=== PATIENT | female | born 1960 | race Caucasian/White ===

== ENCOUNTER → 2017-01-04 | Outpatient (CLI) | payer BC ==
[~2017-01-04] MED LIST: ASPI325T6 PO; BYSTOLIC20 MG PO; CHLORTHALIDONE25 MG PO; COUMADIN 1010 MG/TAB PO; COUMADIN5 MG PO; COUMADIN7.5 MG PO; EPA FISH OIL1000 MG PO; EPA-CON500 MG PO; FISH OIL CONC1000 MG PO; FLECAINIDE ACE100 MG PO; FLECAINIDE ACE150 MG PO; HYGROTON25 MG PO; LISINOPRIL40 MG PO; LOPRESSOR 550 MG/TAB PO; LOPRESSOR50 MG PO; TAMBOCOR150 MG PO; TYLENOL 325MG325 MG PO; WARFARIN SOD5 MG PO; ZESTRIL40 MG PO; ZOLPIDEM10 MG PO
== END ==
LOC: COL.RAD 07:52
DX: I71.2 Thoracic aortic aneurysm, without rupture (principal); R91.1 Solitary pulmonary nodule; R05 Cough; R09.89 Other specified symptoms and signs involving the circulatory and respiratory systems; Z72.0 Tobacco use
CPT/HCPCS: Q9967

== ENCOUNTER → 2018-01-27 | Outpatient (CLI) | payer BC | LOC: COL.RAD 01-26 11:00 | DX: I71.2 Thoracic aortic aneurysm, without rupture (principal); R91.1 Solitary pulmonary nodule | CPT/HCPCS: Q9967 ==

== ENCOUNTER 2018-07-17 08:26 | Emergency (ER) | payer BC ==
[~2018-07-17] VITALS: Ht 157.5 cm; Wt 85.5 kg
[2018-07-17 09:08] LABS: BASO % 0.4 % (0.0-2.0); EOS # 0.2 (0.0-0.7); EOS % 2.2 % (0-4.0); GRAN # 6.1 (1.4-6.5); GRAN % 68.4 % (42.2-75.2); HEMATOCRIT 49.2 % (37.0-47.0); HEMOGLOBIN 16.6 g/dl (12.5-16.0); LYMPH % 22.2 % (20.0-51.0); MEAN CELL VOLUME 91 fl (80.0-100.0); MEAN CORPUSCULAR HEMOGLOBIN 31 pg (27.0-31.0); MEAN CORPUSCULAR HGB CONC 34 g/dl (33.0-37.0); MEAN PLATELET VOLUME 9.4 fl (7.4-10.4); MONO # 0.6 (0.1-0.6); MONO % 6.2 % (1.7-9.3); PLATELET COUNT 248 K/mm3 (130-400); RED BLOOD COUNT 5.43 M/mm3 (4.10-5.30); REDCELL DISTRIBUTION WIDTH-CV 12.3 % (11.5-14.5)
[2018-07-17 09:09] LABS: INR 1.3 (0.8-3.0); PROTHROMBIN TIME 14.7 SECONDS (9.7-12.8)
[2018-07-17 09:13] LABS: ALANINE AMINOTRANSFERASE 51 U/L (9-52); ALBUMIN 4.2 gm/dL (3.5-5.0); ALKALINE PHOSPHATASE 109 U/L (50-136); ANION GAP 14 mmol/L (7-16); AST,SGOT 71 U/L (15-37); BILIRUBIN,TOTAL 0.7 mg/dL (0.0-1.0); BLOOD UREA NITROGEN 15 mg/dL (7-17); CALCIUM 9.5 mg/dL (8.4-10.2); CARBON DIOXIDE 26 mmol/L (22-30); CHLORIDE 103 mmol/L (98-107); CREATININE, serum 0.79 (0.52-1.25); GLUCOSE 145 mg/dL (74-106); LIPASE 105 U/L (23-300); POTASSIUM 3.5 mmol/L (3.4-5.0); SODIUM 143 mmol/L (137-145); TOTAL PROTEIN 7.6 gm/dL (6.4-8.2)
[2018-07-17 09:27] LABS: TROPONIN-I < 0.012 ng/mL (0.000-0.035)
[2018-07-17] MEDS ORDERED: HYGROTON 2525 MG/TAB PO (10:42)
[2018-07-17] MEDS ORDERED: TAMBOCOR150 MG PO (10:42)
[2018-07-17] MEDS ORDERED: ELIQUIS 5MG PO (10:42)
[2018-07-17] MEDS ORDERED: LOPID 600M600 MG/TAB PO (10:43)
[2018-07-17] MEDS ORDERED: ASPIRIN 81M81 MG/TA2 PO (10:44)
[2018-07-17 11:20] VITALS: BP 104/76; PULSE 53; TEMP 96.7
[2018-07-17] MEDS ORDERED: REGLAN 10MG10 MG/TAB PO (12:11)
[2018-07-18] MEDS ORDERED: OMNICEF 300MG300 MG PO (05:08)
[2018-07-18] MEDS ORDERED: LOPID 600M600 MG/TAB PO (07:41)
[2018-07-18] MEDS ORDERED: BENADRYL25 M2 PO (07:43)
[2018-07-18] MEDS ORDERED: TYLENOL 500MG500 MG PO (07:43)
== END 2018-07-17 11:20 | disposition home or self-care (01) ==
LOC: COL.ER 08:26
PROVIDERS: Emergency Medicine
DX: R51 Headache (principal); R10.9 Unspecified abdominal pain; I48.91 Unspecified atrial fibrillation; F17.210 Nicotine dependence, cigarettes, uncomplicated; Z79.82 Long term (current) use of aspirin; Z98.890 Other specified postprocedural states
CPT/HCPCS: J1200; J2765; Q9967

== ENCOUNTER 2018-07-17 22:59 | Observation (INO) | payer BC ==
[~2018-07-17] VITALS: Ht 157.5 cm; Wt 84.5 kg
[~2018-07-17 22:59] MED LIST changes: +ASPIRIN 81M81 MG/TA2 PO; +ELIQUIS 5MG PO; +HYGROTON 2525 MG/TAB PO; +LOPID 600M600 MG/TAB PO; +REGLAN 10MG10 MG/TAB PO
[2018-07-18] VITALS (10 sets, daily range): BP systolic 100–147; BP diastolic 50–86; PULSE 57–91; TEMP 97.8–99.2
[2018-07-18 00:03] LABS: BASO % 0.3 % (0.0-2.0); EOS # 0.1 (0.0-0.7); EOS % 0.9 % (0-4.0); GRAN # 10.6 (1.4-6.5); GRAN % 79.2 % (42.2-75.2); HEMATOCRIT 49.1 % (37.0-47.0); HEMOGLOBIN 16.4 g/dl (12.5-16.0); LYMPH # 1.8 (1.2-3.4); LYMPH % 13.1 % (20.0-51.0); MEAN CELL VOLUME 90 fl (80.0-100.0); MEAN CORPUSCULAR HEMOGLOBIN 30 pg (27.0-31.0); MEAN CORPUSCULAR HGB CONC 33 g/dl (33.0-37.0); MEAN PLATELET VOLUME 9.5 fl (7.4-10.4); MONO # 0.8 (0.1-0.6); MONO % 6.1 % (1.7-9.3); PLATELET COUNT 266 K/mm3 (130-400); RED BLOOD COUNT 5.45 M/mm3 (4.10-5.30); REDCELL DISTRIBUTION WIDTH-CV 12.1 % (11.5-14.5)
[2018-07-18 00:07] LABS: INR 1.2 (0.8-3.0); PROTHROMBIN TIME 13.1 SECONDS (9.7-12.8)
[2018-07-18 00:09] LABS: PARTIAL THROMBOPLASTIN TIME 45.5 SECONDS (26.0-37.0)
[2018-07-18 00:13] LABS: ALANINE AMINOTRANSFERASE 79 U/L (9-52); ALBUMIN 4.3 gm/dL (3.5-5.0); ALKALINE PHOSPHATASE 134 U/L (50-136); ANION GAP 9 mmol/L (7-16); AST,SGOT 110 U/L (15-37); BILIRUBIN,TOTAL 0.5 mg/dL (0.0-1.0); BLOOD UREA NITROGEN 18 mg/dL (7-17); C-REACTIVE PROTEIN 3.3 mg/dL (0.0-0.9); CALCIUM 10.4 mg/dL (8.4-10.2); CARBON DIOXIDE 27 mmol/L (22-30); CHLORIDE 104 mmol/L (98-107); CREATININE, serum 0.98 (0.52-1.25); GLUCOSE 122 mg/dL (74-106); LIPASE 96 U/L (23-300); POTASSIUM 3.7 mmol/L (3.4-5.0); SODIUM 139 mmol/L (137-145); TOTAL PROTEIN 7.9 gm/dL (6.4-8.2)
[2018-07-18 00:22] LABS: TROPONIN-I < 0.012 ng/mL (0.000-0.035)
[2018-07-18 04:06] LABS: COLLECTION METHOD CLEAN CATCH
[2018-07-18 04:15] LABS: PH 6 (5-8); SQUAMOUS EPITHELIAL 0-2 /hpf; URINE APPEARANCE Clear; URINE BACTERIA None Seen /hpf; URINE BILIRUBIN Negative (NEGATIVE); URINE BLOOD 1+ (NEGATIVE); URINE COLOR Yellow; URINE GLUCOSE Negative (NEGATIVE); URINE KETONE Trace (NEGATIVE); URINE LEUKOCYTE ESTERASE Negative (NEGATIVE); URINE NITRATE Negative (NEGATIVE); URINE PROTEIN(semi-quant) Negative (NEGATIVE); URINE UROBILINOGEN Negative (NEGATIVE)
[2018-07-18] MEDS ORDERED: OMNICEF 300MG300 MG PO (05:08)
--- NOTE | 2018-07-18 05:25 | NUR ---
Patient arrived to medical floor via wheelchair. Assessment complete. Lungs clear. Heart sounds normal. Bowels active x4. ABD soft. Reports 5/10 epigastric and headache pain. Pulses strong throughout. No edema noted. IV to right AC without complications. Orientated to medical floor and hospital. Answered all questions at this time. Denies other needs. Call light in reach.
--- NOTE | 2018-07-18 07:09 | NUR ---
Report given to BHARTI Vences
[2018-07-18] MEDS ORDERED: LOPID 600M600 MG/TAB PO (07:41)
[2018-07-18] MEDS ORDERED: TYLENOL 500MG500 MG PO (07:43)
[2018-07-18] MEDS ORDERED: BENADRYL25 M2 PO (07:43)
[2018-07-18 08:41] LABS: BASO % 0.4 % (0.0-2.0); EOS % 0.4 % (0-4.0); GRAN # 8.5 (1.4-6.5); GRAN % 77.7 % (42.2-75.2); HEMATOCRIT 51.1 % (37.0-47.0); LYMPH # 1.6 (1.2-3.4); LYMPH % 14.4 % (20.0-51.0); MEAN CELL VOLUME 90 fl (80.0-100.0); MEAN CORPUSCULAR HEMOGLOBIN 30 pg (27.0-31.0); MEAN CORPUSCULAR HGB CONC 33 g/dl (33.0-37.0); MEAN PLATELET VOLUME 9.3 fl (7.4-10.4); MONO # 0.7 (0.1-0.6); MONO % 6.7 % (1.7-9.3); PLATELET COUNT 274 K/mm3 (130-400); RED BLOOD COUNT 5.66 M/mm3 (4.10-5.30); REDCELL DISTRIBUTION WIDTH-CV 12.3 % (11.5-14.5)
[2018-07-18 09:06] LABS: ALBUMIN 4.2 gm/dL (3.5-5.0); BILIRUBIN,TOTAL 0.4 mg/dL (0.0-1.0); CALCIUM 9.9 mg/dL (8.4-10.2); CREATININE, serum 0.75 (0.52-1.25); POTASSIUM 3.8 mmol/L (3.4-5.0)
--- NOTE | 2018-07-18 09:39 | NUR ---
JESUS student attended clinical rounding and met with the patient and her mother, Lea, to discuss discharge planning. The patient lives in [place] with her significant other Pam. The patient reports independence with ADLs and has no DME. The patients PCP is Dr. Cass Fung and she gets her medications from [facility] in [place]. The patient reports no difficulties obtaining her medications. The patient does not have DPOA-HC in EMR but was interested in completing one. JESUS provided DPOA-HC form. The patient plans to return home with her significant other and family support upon discharge. No additional needs at this time.
--- NOTE | 2018-07-18 09:40 | NUR ---
CALL PLACED TO DR. FISHER REGARDING ORDERED LUMBAR PUNCTURE.STATES TO HOLD ELIQUIS AND SCHEDULE LUMBAR PUNCTURE ACCORDING.DR. SHEARER UPDATED AND ELIQUIS PUT ON HOLD.WILL CONTINUE TO MONITOR.
--- NOTE | 2018-07-18 11:07 | NUR ---
PATIENT CONTINUES WITH C/O OF EPIGASTRIC PAIN WITH INTERMITTENT RADIATION TO RIGHT UPPER QUADRANT AND MID BACK. DENIES C/O OF NAUSEA. NO VOMITTING. CONTINUES TO BE NPO D/T DIAGNOSTIC TESTING. SEE EMAR FOR MEDICATIONS ADMINISTERED FOR PAIN. VERBAL COMMUNICATION THAT AM MEDICATIONS COULD BE ADMINISTERED. ELIQUIS AND BETA VIMAL ON HOLD. PATIENT AGREES WITH PLAN OF CARE AND DENIES CONCERNS AFTER REVIEW.
--- NOTE | 2018-07-18 15:46 | NUR ---
PATIENT SITTING UP IN BED PLAYING ON PHONE. FINISHED ORDERING LUNCH AT THIS TIME. DENIES C/O OF NAUSEA. DISCUSSED STARTING SLOW WITH ORAL INTAKE TO DETERMINE INCREASED PAIN AND NAUSEA. REPORTS MILD EPIGASTRIC CRAMPING AT THIS TIME. NS INFUSING AT 125ML/HR THROUGH INT IN RIGHT AC. DENIES FURTHER NEEDS AT THIS TIME.
--- NOTE | 2018-07-18 18:57 | NUR ---
REPORT GIVEN TO BHARTI ELLINGTON.
--- NOTE | 2018-07-18 19:06 | NUR ---
Report received from BHARTI Vences. Resting in bed. Denies needs. Call light in reach.
--- NOTE | 2018-07-18 20:25 | NUR ---
Resting in bed. Assessment complete. Lungs clear. Heart sounds normal. Bowels active x4. Pulses strong throughout. No edema noted. Reports 4/10 pain at this time in ABD. Denies need for intervention at this time. Denies other needs. Call light in reach.
--- NOTE | 2018-07-18 21:15 | NUR ---
Patient reports 5/10 ABD pain. Requested PRN diluadid. Provided to patient. Will continue to monitor.
[2018-07-19 00:06] VITALS: BP 124/75; PULSE 63; TEMP 98.8
--- NOTE | 2018-07-19 00:26 | NUR ---
Resting in bed. Denies needs. Reports 06/21 thats "manageable." Call light in reach.
--- NOTE | 2018-07-19 01:07 | NUR ---
Report 6/10 ABD pain. Provided with PRN diluadid at this time. Will monitor.
[2018-07-19 03:00] VITALS: BP 118/82; PULSE 67; TEMP 98.3
--- NOTE | 2018-07-19 04:10 | NUR ---
Resting in bed, asleep. Call light in reach.
--- NOTE | 2018-07-19 04:23 | NUR ---
Reports 8/10 ABD pain. Provided with PRN dilaudid at this time.
--- NOTE | 2018-07-19 06:10 | NUR ---
Patient required pain management throughout night for epigastric pain. Otherwise uneventful. Up in room watching news and giving self sponge bath this AM. Denies needs. Call light in reach.
--- NOTE | 2018-07-19 07:02 | NUR ---
Report given to BHARTI Vences
--- NOTE | 2018-07-19 07:05 | NUR ---
received report from BHARTI Garcia.patient ready for EGD scheduled this am.no other needs voiced at this time.call light in reach
--- NOTE | 2018-07-19 08:05 | NUR ---
PT RETURNED TO ROOM FROM EGD.AWAKE,REPORTS BEING TIRED.VSS.DENIES ANY NEEDS AT THIS TIME.CALL LIGHT IN REACH
[2018-07-19 08:11] LABS: BASO # 0.1 (0.0-0.2); BASO % 0.6 % (0.0-2.0); EOS # 0.3 (0.0-0.7); EOS % 2.7 % (0-4.0); GRAN # 7.2 (1.4-6.5); GRAN % 70.8 % (42.2-75.2); HEMATOCRIT 46.4 % (37.0-47.0); HEMOGLOBIN 15.3 g/dl (12.5-16.0); LYMPH # 1.9 (1.2-3.4); LYMPH % 18.5 % (20.0-51.0); MEAN CELL VOLUME 92 fl (80.0-100.0); MEAN CORPUSCULAR HEMOGLOBIN 30 pg (27.0-31.0); MEAN CORPUSCULAR HGB CONC 33 g/dl (33.0-37.0); MONO # 0.7 (0.1-0.6); MONO % 7.1 % (1.7-9.3); PLATELET COUNT 262 K/mm3 (130-400); RED BLOOD COUNT 5.03 M/mm3 (4.10-5.30); REDCELL DISTRIBUTION WIDTH-CV 12.5 % (11.5-14.5)
[2018-07-19 08:12] LABS: POTASSIUM 3.8 mmol/L (3.4-5.0)
[2018-07-19 08:23] LABS: ALBUMIN 3.9 gm/dL (3.5-5.0); BILIRUBIN,TOTAL 0.7 mg/dL (0.0-1.0); CREATININE, serum 0.71 (0.52-1.25); TOTAL PROTEIN 7.3 gm/dL (6.4-8.2)
[2018-07-19 08:45] VITALS: BP 109/76; PULSE 56
[2018-07-19 08:49] VITALS: BP 121/73; PULSE 60; TEMP 97.6
[2018-07-19 08:53] VITALS: BP 132/79; PULSE 61
--- NOTE | 2018-07-19 09:00 | NUR ---
ASSESSMENT COMPLETE.PATIENT AWAKE,A/OX3.COMPLAIN OF DISCOMFORT TO EPIGASTRIC REGION.TENDER TO PALPATION.ALL MEDS GIVEN.SUPPOSITORY GIVEN FOR CONSTIPATION.POST OP VITALS STABLE.EGD COMPLETED.PROTONIX ORDERED.POTTASIUM REPLACED.NO OTHER NEEDS VOICED AT THIS TIME.WILL CONTINUE TO MONITOR.CALL LIGHT IN REACH
[2018-07-19] MEDS ORDERED: PROTONIX 40MG T40 MG PO (09:34)
[2018-07-19] MEDS ORDERED: DULCOLAX S10 MG/SUPP RC (09:34)
[2018-07-19] MEDS ORDERED: MIRALAX510G PO (09:34)
[2018-07-19] MEDS ORDERED: FLEXERIL5 MG PO (09:40)
[2018-07-19] MEDS ORDERED: BENTYL 20MG20 MG/TAB PO (09:42)
[2018-07-19 11:41] VITALS: BP 140/86; PULSE 62; TEMP 98.5
--- NOTE | 2018-07-19 12:12 | NUR ---
First visit from the weathercaster. no needs right now.
--- NOTE | 2018-07-19 14:35 | NUR ---
PT RECEIVED BENTYL AND FLEXERIL FOR STOMACH CRAMPING.
--- NOTE | 2018-07-19 14:36 | NUR ---
ALL DISCHARGE INSTRUCTIONS REVEIWED.TELEMETRY AND IV DISCONTINUED.ALL LUMBAR PUNCTURE INSRUCTIONS REVIEWED.PRE-PROCEDURE INSTRUCTIONS GIVEN TO PATIENT.ALL QUESTIONS ANSWERED.NO OTHER NEEDS VOICED AT THIS TIME.VC STAFF ESCORTED PATIENT OUT VIA WHEELCHAIR.
== END 2018-07-19 14:39 | disposition home or self-care (01) ==
LOC: COL.ER 22:59 → MEDICAL 07-18 04:00
PROVIDERS: Emergency Medicine; Nurse Practitioner Family; Physician Assistant; ADMIT Hospitalist
DX: K29.30 Chronic superficial gastritis without bleeding (principal); K29.80 Duodenitis without bleeding; K44.9 Diaphragmatic hernia without obstruction or gangrene; R74.0 Nonspecific elevation of levels of transaminase and lactic acid dehydrogenase [LDH]; R51 Headache; I71.2 Thoracic aortic aneurysm, without rupture; R91.1 Solitary pulmonary nodule; I48.91 Unspecified atrial fibrillation; I10 Essential (primary) hypertension; N39.0 Urinary tract infection, site not specified; Z79.01 Long term (current) use of anticoagulants; Z79.82 Long term (current) use of aspirin; Z82.49 Family history of ischemic heart disease and other diseases of the circulatory system; F17.210 Nicotine dependence, cigarettes, uncomplicated; Z88.8 Allergy status to other drugs, medicaments and biological substances
CPT/HCPCS: A4216; A9500; A9585; C9113; G0378; J0360; J0696; J1170; J1200; J2550; J2704; J2785; J7030; J7120; Q9967

== ENCOUNTER 2018-07-23 00:26 | Emergency (ER) | payer BC ==
[~2018-07-23] VITALS: Ht 157.5 cm; Wt 84.1 kg
[~2018-07-23 00:26] MED LIST changes: +BENADRYL25 M2 PO; +BENTYL 20MG20 MG/TAB PO; +DULCOLAX S10 MG/SUPP RC; +FLEXERIL5 MG PO; +MIRALAX510G PO; +OMNICEF 300MG300 MG PO; +PROTONIX 40MG T40 MG PO; +TYLENOL 500MG500 MG PO
[2018-07-23 00:32] VITALS: TEMP 97.4
[2018-07-23 00:51] LABS: BASO # 0.1 (0.0-0.2); BASO % 0.6 % (0.0-2.0); EOS # 0.3 (0.0-0.7); EOS % 2.9 % (0-4.0); GRAN # 6.3 (1.4-6.5); GRAN % 56.9 % (42.2-75.2); HEMATOCRIT 52.5 % (37.0-47.0); HEMOGLOBIN 17.6 g/dl (12.5-16.0); LYMPH # 3.5 (1.2-3.4); LYMPH % 31.1 % (20.0-51.0); MEAN CELL VOLUME 90 fl (80.0-100.0); MEAN CORPUSCULAR HEMOGLOBIN 30 pg (27.0-31.0); MEAN CORPUSCULAR HGB CONC 34 g/dl (33.0-37.0); MEAN PLATELET VOLUME 9.3 fl (7.4-10.4); MONO # 0.8 (0.1-0.6); MONO % 7.6 % (1.7-9.3); PLATELET COUNT 319 K/mm3 (130-400); RED BLOOD COUNT 5.81 M/mm3 (4.10-5.30); REDCELL DISTRIBUTION WIDTH-CV 12.2 % (11.5-14.5)
[2018-07-23 01:01] LABS: ALANINE AMINOTRANSFERASE 64 U/L (9-52); ALBUMIN 4.5 gm/dL (3.5-5.0); ALKALINE PHOSPHATASE 179 U/L (50-136); ANION GAP 12 mmol/L (7-16); AST,SGOT 92 U/L (15-37); BILIRUBIN,TOTAL 0.4 mg/dL (0.0-1.0); BLOOD UREA NITROGEN 18 mg/dL (7-17); CALCIUM 9.9 mg/dL (8.4-10.2); CARBON DIOXIDE 29 mmol/L (22-30); CHLORIDE 100 mmol/L (98-107); CREATININE, serum 0.85 (0.52-1.25); GLUCOSE 117 mg/dL (74-106); LIPASE 195 U/L (23-300); POTASSIUM 3.8 mmol/L (3.4-5.0); SODIUM 141 mmol/L (137-145); TOTAL PROTEIN 8.4 gm/dL (6.4-8.2)
[2018-07-23 01:16] LABS: TROPONIN-I < 0.012 ng/mL (0.000-0.035)
[2018-07-23] MEDS ORDERED: DOXYCYCLINE 10100 MG PO (03:15)
[2018-07-23 05:47] VITALS: BP 96/68; PULSE 65
== END 2018-07-23 05:51 | disposition home or self-care (01) ==
LOC: COL.ER 00:26
PROVIDERS: Emergency Medicine
DX: I48.91 Unspecified atrial fibrillation (principal); F17.210 Nicotine dependence, cigarettes, uncomplicated
CPT/HCPCS: J1200; J2270; J2765; J7030; Q9967

== ENCOUNTER 2018-07-23 11:00 | Emergency (ER) | payer BC ==
[~2018-07-23] VITALS: Ht 157.5 cm; Wt 84.1 kg
[~2018-07-23 11:00] MED LIST changes: +DOXYCYCLINE 10100 MG PO
[2018-07-23 11:08] VITALS: TEMP 97.3
[2018-07-23 11:25] LABS: BASO # 0.1 (0.0-0.2); BASO % 0.6 % (0.0-2.0); EOS # 0.2 (0.0-0.7); GRAN % 64.1 % (42.2-75.2); HEMATOCRIT 49.5 % (37.0-47.0); HEMOGLOBIN 16.3 g/dl (12.5-16.0); LYMPH % 25.1 % (20.0-51.0); MEAN CELL VOLUME 92 fl (80.0-100.0); MEAN CORPUSCULAR HEMOGLOBIN 30 pg (27.0-31.0); MEAN CORPUSCULAR HGB CONC 33 g/dl (33.0-37.0); MEAN PLATELET VOLUME 9.4 fl (7.4-10.4); MONO # 0.5 (0.1-0.6); MONO % 6.3 % (1.7-9.3); PLATELET COUNT 334 K/mm3 (130-400); RED BLOOD COUNT 5.36 M/mm3 (4.10-5.30); REDCELL DISTRIBUTION WIDTH-CV 12.3 % (11.5-14.5)
[2018-07-23 11:38] LABS: ALBUMIN 4.2 gm/dL (3.5-5.0); BILIRUBIN,TOTAL 0.4 mg/dL (0.0-1.0); CALCIUM 9.3 mg/dL (8.4-10.2); CREATININE, serum 0.8 (0.52-1.25); POTASSIUM 3.4 mmol/L (3.4-5.0)
[2018-07-23 11:45] LABS: ERYTHROCYTE SEDIMENTATION RATE 16 mm/hr (0-30)
[2018-07-23 14:35] VITALS: BP 118/77; PULSE 56
== END 2018-07-23 14:44 | disposition short-term general hospital (02) ==
LOC: COL.ER 11:00
PROVIDERS: Family Medicine
DX: I77.4 Celiac artery compression syndrome (principal); I48.91 Unspecified atrial fibrillation; Z79.01 Long term (current) use of anticoagulants; F17.210 Nicotine dependence, cigarettes, uncomplicated
CPT/HCPCS: J7030

== ENCOUNTER 2018-08-29 10:40 | Inpatient (IN) | payer BC ==
[~2018-08-29] VITALS: Ht 157.5 cm; Wt 84.5 kg
[2018-08-29] VITALS (7 sets, daily range): BP systolic 87–111; BP diastolic 67–85; PULSE 107–116; TEMP 97.8–98.3
--- NOTE | 2018-08-29 11:10 | NUR ---
Pt admitted to ICU bed 3 from [facility]. Pt placed on ekg monitor upon arrival. Pt denies any pain, only reporting some palpitations rarely. Call light within reach. Dr. Villanueva notified of Pt admission.
[2018-08-29] MEDS ORDERED: ASPIRIN 81M81 MG/TA2 PO (12:38)
[2018-08-29] MEDS ORDERED: ASPIRIN E.C. 8181 MG PO (12:39)
[2018-08-29] MEDS ORDERED: TYLENOL 500MG500 MG PO (12:39)
[2018-08-29] MEDS ORDERED: MASON NATURAL1200 MG PO (12:41)
[2018-08-29] MEDS ORDERED: ELIQUIS 5MG PO (12:44)
[2018-08-29] MEDS ORDERED: TAMBOCOR150 MG PO ×2 (12:45→12:47)
[2018-08-29] MEDS ORDERED: MAG-OX 400400 MG/TAB PO (12:50)
[2018-08-29] MEDS ORDERED: VERAPAMIL 440 MG/TAB PO (12:51)
[2018-08-29 15:32] LABS: BASO # 0.1 (0.0-0.2); BASO % 0.5 % (0.0-2.0); EOS # 0.1 (0.0-0.7); EOS % 0.5 % (0-4.0); GRAN # 7.4 (1.4-6.5); GRAN % 71.9 % (42.2-75.2); HEMATOCRIT 46.6 % (37.0-47.0); HEMOGLOBIN 15.4 g/dl (12.5-16.0); LYMPH # 2.2 (1.2-3.4); LYMPH % 21.4 % (20.0-51.0); MEAN CELL VOLUME 91 fl (80.0-100.0); MEAN CORPUSCULAR HEMOGLOBIN 30 pg (27.0-31.0); MEAN CORPUSCULAR HGB CONC 33 g/dl (33.0-37.0); MEAN PLATELET VOLUME 9.2 fl (7.4-10.4); MONO # 0.6 (0.1-0.6); MONO % 5.3 % (1.7-9.3); PLATELET COUNT 320 K/mm3 (130-400); RED BLOOD COUNT 5.15 M/mm3 (4.10-5.30); REDCELL DISTRIBUTION WIDTH-CV 12.2 % (11.5-14.5)
[2018-08-29 15:34] LABS: INR 1.2 (0.8-3.0)
[2018-08-29 15:41] LABS: ALBUMIN 4.1 gm/dL (3.5-5.0); BILIRUBIN,TOTAL 0.7 mg/dL (0.0-1.0); CALCIUM 9.1 mg/dL (8.4-10.2); CREATININE, serum 0.73 (0.52-1.25); MAGNESIUM 2.1 mg/dL (1.6-2.3); POTASSIUM 4.3 mmol/L (3.4-5.0); TOTAL PROTEIN 7.4 gm/dL (6.4-8.2)
[2018-08-29 15:55] LABS: TROPONIN-I 0.05 ng/mL (0.000-0.035)
--- NOTE | 2018-08-29 16:35 | NUR ---
Admission assessment complete at this time. Plan of care reviewed at bedside with patient. Additional time taken to address any other needs or concerns. Vitals stable at this time. Bed in low position, call light within reach. Denies pain or any other discomfort. Will continue to monitor.
--- NOTE | 2018-08-29 19:09 | NUR ---
Bedside report given to BHARTI Up.
--- NOTE | 2018-08-29 19:15 | NUR ---
Bedside report received from Vignesh HAY. Pt alert and active in report while resting in high fowlers in bed. Pt currently has eye glasses on.
[2018-08-30] VITALS (8 sets, daily range): BP systolic 75–128; BP diastolic 51–93; PULSE 65–121; TEMP 97.9–98.8
[2018-08-30 05:39] LABS: BASO % 0.4 % (0.0-2.0); EOS # 0.2 (0.0-0.7); EOS % 1.8 % (0-4.0); GRAN # 6.3 (1.4-6.5); GRAN % 67.7 % (42.2-75.2); HEMATOCRIT 44.1 % (37.0-47.0); HEMOGLOBIN 14.4 g/dl (12.5-16.0); LYMPH # 2.2 (1.2-3.4); LYMPH % 23.7 % (20.0-51.0); MEAN CELL VOLUME 93 fl (80.0-100.0); MEAN CORPUSCULAR HEMOGLOBIN 30 pg (27.0-31.0); MEAN CORPUSCULAR HGB CONC 33 g/dl (33.0-37.0); MEAN PLATELET VOLUME 9.8 fl (7.4-10.4); MONO # 0.6 (0.1-0.6); PLATELET COUNT 308 K/mm3 (130-400); RED BLOOD COUNT 4.77 M/mm3 (4.10-5.30); REDCELL DISTRIBUTION WIDTH-CV 12.5 % (11.5-14.5)
[2018-08-30 05:45] LABS: CALCIUM 8.7 mg/dL (8.4-10.2); CREATININE, serum 0.83 (0.52-1.25); MAGNESIUM 2.1 mg/dL (1.6-2.3); POTASSIUM 4.2 mmol/L (3.4-5.0)
[2018-08-30 05:56] LABS: TROPONIN-I 0.019 ng/mL (0.000-0.035)
--- NOTE | 2018-08-30 07:25 | NUR ---
Bedside report provided to Bella HAY. Pt alert during report. Questions encouraged and answered.
--- NOTE | 2018-08-30 07:31 | NUR ---
Report received from Annel HAY and care resumed.
--- NOTE | 2018-08-30 09:30 | NUR ---
Dr Mejia in to see pt at this time.
--- NOTE | 2018-08-30 11:50 | NUR ---
Dr Al in to see pt at this time.
--- NOTE | 2018-08-30 13:09 | NUR ---
Report called to Maddie HAY on medical floor. Pt to transfer to 356 on tele.
--- NOTE | 2018-08-30 13:21 | NUR ---
Pt taken to room 356 per wheelchair with chart and belongings.
--- NOTE | 2018-08-30 13:30 | NUR ---
Pt arrives to medical unit rm 356 from ICU, awake and alert, denies pain, reports slight tenderness to left AC IV site. No redness at site at this time. Saline lock IV to right AC without s/s of complications. POC reviewed with pt, shower requested at this time. Call light in reach.
--- NOTE | 2018-08-30 14:00 | NUR ---
When wrapping IV sites for shower, pt reports increased pain to left AC IV, redness noted superior to insertion site, pain reported with flushing. IV discontinued with tip intact. Right AC IV with scant amount of leaking with flush, no other s/s of complications.
--- NOTE | 2018-08-30 14:39 | NUR ---
JESUS met with the patient to discuss a discharge plan. The pt lives in [place] with her partner Chris. The pt does not use DME and reports independence. The pt's PCP is Dr. Fung. The pt receives her medications from [facility] in and reports no difficulties obtaining them. The pt does not have advanced directives in the EMR. The pt was interested in obtaining a DPOA-HC. JESUS provided the form to the pt. The pt completed the DPOA-HC designating Chris Brantley and Lea Ba . JESUS and the pt's nurse witnessed. The original was given to the patient and a copy was placed in the chart. There are no additional needs at this time.
--- NOTE | 2018-08-30 16:00 | NUR ---
Pt reports swelling to left inner arm where IV site discontinued. This nurse notes swelling to medial, anterior arm. Warm pack placed to site.
--- NOTE | 2018-08-30 16:45 | NUR ---
BP low 75/51 in left forearm. BP reassessed with bigger cuff size on right upper arm, now 96/56 which is consistent with previous BP's for this stay. Pt denies dizziness, shortness of breath. Left AC site around former IV with less swelling and pt reports slight relief of pain following warm pack.
--- NOTE | 2018-08-30 20:30 | NUR ---
Initial shift assessment done- Tele on- NSR, no requests,, L/AC had IV earlier todqy- was dc,d due to pain- site remains slightly red/some edema but pt states it is better
[2018-08-31 04:30] VITALS: BP 109/61; PULSE 65; TEMP 98.2
--- NOTE | 2018-08-31 05:58 | NUR ---
No requests, quiet night- contiunes in NSR per Tele
[2018-08-31 07:28] LABS: BASO % 0.4 % (0.0-2.0); EOS # 0.2 (0.0-0.7); EOS % 2.3 % (0-4.0); GRAN # 4.8 (1.4-6.5); GRAN % 60.8 % (42.2-75.2); HEMATOCRIT 42.3 % (37.0-47.0); HEMOGLOBIN 13.8 g/dl (12.5-16.0); LYMPH # 2.4 (1.2-3.4); LYMPH % 29.9 % (20.0-51.0); MEAN CELL VOLUME 93 fl (80.0-100.0); MEAN CORPUSCULAR HEMOGLOBIN 30 pg (27.0-31.0); MEAN CORPUSCULAR HGB CONC 33 g/dl (33.0-37.0); MEAN PLATELET VOLUME 9.6 fl (7.4-10.4); MONO # 0.5 (0.1-0.6); MONO % 6.1 % (1.7-9.3); PLATELET COUNT 271 K/mm3 (130-400); RED BLOOD COUNT 4.57 M/mm3 (4.10-5.30); REDCELL DISTRIBUTION WIDTH-CV 12.5 % (11.5-14.5)
[2018-08-31 07:38] VITALS: BP 101/58; PULSE 66; TEMP 97.7
[2018-08-31 07:43] LABS: CALCIUM 8.9 mg/dL (8.4-10.2); CREATININE, serum 0.71 (0.52-1.25)
--- NOTE | 2018-08-31 08:58 | NUR ---
Pt lying in bed alert and oriented. Denies any pain or shortness of breath. Completed morning assessment. Pt LAC has been tender and warm. Nurses have been applying hot compresses. Breathing even and unlabored, breath sounds clear. Denies any palpitations. Blood pressures have been low, held bp medication after speaking with Elen BRANNER MACHINE TENDER. Denies any needs at this time. Call light in reach.
--- NOTE | 2018-08-31 10:28 | NUR ---
Initial visit; Patient thanked Purchasing Manager for looking in on her and offering God's blessings.
--- NOTE | 2018-08-31 12:12 | NUR ---
Pt sitting up in chair, denies any pain or needs at this time. Waiting on discharge orders at this time.
[2018-08-31 12:37] VITALS: BP 120/65; PULSE 66; TEMP 98.2
[2018-08-31] MEDS ORDERED: TOPROL XL 25MG25 MG PO (13:42)
--- NOTE | 2018-08-31 13:51 | NUR ---
Pt getting ready for discharge, removed into to right arm, no redness or swelling noted, catheter tip intact.
--- NOTE | 2018-08-31 14:20 | NUR ---
Discharge paperwork given, all questions asked and answered. Paperwork signed, all belongings taken with pt. Walked out by [facility] staff.
== END 2018-08-31 14:20 | disposition home or self-care (01) | DRG 310 ==
LOC: ICU 10:40 → MEDICAL 11:08 → ICU 11:08 → IMCU 08-30 11:01 → ICU 08-30 11:01 → MEDICAL 08-30 13:17
PROVIDERS: Physician Assistant; ADMIT Internal Medicine
PROC: 5A2204Z Restoration of Cardiac Rhythm, Single (ICD-10-PCS; principal; 2018-08-31)
DX: I48.0 Paroxysmal atrial fibrillation (principal); I47.2 Ventricular tachycardia; I10 Essential (primary) hypertension; I71.2 Thoracic aortic aneurysm, without rupture; I70.8 Atherosclerosis of other arteries; E78.5 Hyperlipidemia, unspecified; F17.210 Nicotine dependence, cigarettes, uncomplicated; Z79.82 Long term (current) use of aspirin; Z79.01 Long term (current) use of anticoagulants
CPT/HCPCS: 99223-AI; 99233-AI; 99239; J3475

== ENCOUNTER 2018-09-15 02:45 | Inpatient (IN) | payer BC ==
[~2018-09-15] VITALS: Ht 157.5 cm; Wt 87.3 kg
[2018-09-15] VITALS (13 sets, daily range): BP systolic 104–130; BP diastolic 55–88; PULSE 55–104; TEMP 97.8–98.2; O2SAT 72–100
[~2018-09-15 02:45] MED LIST changes: +ASPIRIN E.C. 8181 MG PO; +MAG-OX 400400 MG/TAB PO; +MASON NATURAL1200 MG PO; +TOPROL XL 25MG25 MG PO; +VERAPAMIL 440 MG/TAB PO
--- NOTE | 2018-09-15 03:35 | NUR ---
Arrived to the unit via EMS. Able to self transfer to ICU bed. Attached to all monitors. HR Afib with rate 100-120's. Denies any chest pain, dizziness or shortness of breath. Other VS stable at this time. Currently receiving fluid bolus and on Cardizem drip which was made a [facility]. Medication labeled properly.
[2018-09-15] MEDS ORDERED: LIPITOR 40MG TA40 MG PO (04:08)
--- NOTE | 2018-09-15 04:30 | NUR ---
Requesting to use toilet; stand by assist to bathroom. No concerns at this time.
[2018-09-15 05:08] LABS: BASO % 0.5 % (0.0-2.0); EOS # 0.1 (0.0-0.7); EOS % 1.5 % (0-4.0); GRAN # 5.2 (1.4-6.5); GRAN % 65.7 % (42.2-75.2); HEMATOCRIT 43.1 % (37.0-47.0); HEMOGLOBIN 14.5 g/dl (12.5-16.0); MEAN CELL VOLUME 89 fl (80.0-100.0); MEAN CORPUSCULAR HEMOGLOBIN 30 pg (27.0-31.0); MEAN CORPUSCULAR HGB CONC 34 g/dl (33.0-37.0); MEAN PLATELET VOLUME 9.7 fl (7.4-10.4); MONO # 0.5 (0.1-0.6); PLATELET COUNT 228 K/mm3 (130-400); RED BLOOD COUNT 4.83 M/mm3 (4.10-5.30); REDCELL DISTRIBUTION WIDTH-CV 12.5 % (11.5-14.5)
[2018-09-15 05:20] LABS: ANION GAP 9 mmol/L (7-16); BLOOD UREA NITROGEN 13 mg/dL (7-17); CALCIUM 9.1 mg/dL (8.4-10.2); CARBON DIOXIDE 25 mmol/L (22-30); CHLORIDE 109 mmol/L (98-107); CREATININE, serum 0.57 (0.52-1.25); GLUCOSE 138 mg/dL (74-106); POTASSIUM 4.3 mmol/L (3.4-5.0); SODIUM 143 mmol/L (137-145)
[2018-09-15 05:38] LABS: TROPONIN-I < 0.012 ng/mL (0.000-0.035)
--- NOTE | 2018-09-15 10:31 | NUR ---
JESUS met with the patient to discuss a discharge plan. The pt lives in [place] with her partner, Chris. The pt does not use DME and reports independence with ADLs. The pt's PCP is Dr. Fung. The pt receives her medications from [facility] in with no difficulties. The pt has advanced directives in the EMR. The pt plans to return home upon discharge. There are no addtional needs at this time. DPOAs for Chris Brantley Lea Ba
--- NOTE | 2018-09-15 10:55 | NUR ---
JESUS rounded with the team. The patient has room orders for medical floor and should transfer upstairs today, 09/15.
--- NOTE | 2018-09-15 11:24 | NUR ---
Report called to Marielle HAY
--- NOTE | 2018-09-15 12:46 | NUR ---
Transferred to medical room 351 via wheelchair by Katalina HAY
--- NOTE | 2018-09-15 12:46 | NUR ---
PT ADMITTED TO FLOOR AT THIS TIME. IRON CASTER ESCORT PT TO ROOM AND ORIENTED PT TO ROOM. NO ISSUES VOICED
--- NOTE | 2018-09-15 18:48 | NUR ---
PT HAD UNEVENTFUL DAY. HAS BEEN NAPPING OFF AND ON THIS SHIFT STATED THAT SHE DIDNT GET MUCH SLEEP LAST NIGHT. HAS SHOWERED AND STATED SHE FELT ALOT BETTER SINCE. NO ISSUES OR CONSERNS VOICE.
--- NOTE | 2018-09-15 20:30 | NUR ---
Has been resting for the last couple hours, states did not get any sleep last night, VSS, denies chest pain/denies SOB- Up to bathroom on own-steady on feet. Tele on SB
[2018-09-16 04:14] VITALS: BP 122/64; PULSE 63; TEMP 97.8
--- NOTE | 2018-09-16 06:46 | NUR ---
Quiet night- no requests, VSS, slept well
--- NOTE | 2018-09-16 07:15 | NUR ---
Report received from BHARTI Rivera. Pt in bed resting finished [place]. Denies needs, will continue to monitor.
[2018-09-16 07:21] LABS: BASO % 0.4 % (0.0-2.0); EOS # 0.2 (0.0-0.7); EOS % 2.5 % (0-4.0); GRAN # 4.5 (1.4-6.5); GRAN % 66.2 % (42.2-75.2); HEMATOCRIT 43.7 % (37.0-47.0); HEMOGLOBIN 14.2 g/dl (12.5-16.0); LYMPH # 1.6 (1.2-3.4); LYMPH % 23.4 % (20.0-51.0); MEAN CELL VOLUME 92 fl (80.0-100.0); MEAN CORPUSCULAR HEMOGLOBIN 30 pg (27.0-31.0); MEAN CORPUSCULAR HGB CONC 33 g/dl (33.0-37.0); MEAN PLATELET VOLUME 9.9 fl (7.4-10.4); MONO # 0.5 (0.1-0.6); MONO % 7.1 % (1.7-9.3); PLATELET COUNT 257 K/mm3 (130-400); RED BLOOD COUNT 4.76 M/mm3 (4.10-5.30); REDCELL DISTRIBUTION WIDTH-CV 12.5 % (11.5-14.5)
[2018-09-16 07:27] LABS: CALCIUM 9.2 mg/dL (8.4-10.2); CREATININE, serum 0.6 (0.52-1.25); POTASSIUM 3.8 mmol/L (3.4-5.0)
[2018-09-16 08:09] VITALS: BP 98/65; PULSE 64; TEMP 97.7
--- NOTE | 2018-09-16 08:50 | NUR ---
Assessment charted. PT in bed resting with lights off wnating to take a morning nap. Denies pain. INT to R A/C, flushes well. Pt denies pain. Will continue to monitor.
[2018-09-16 11:14] VITALS: BP 108/79; PULSE 64; TEMP 97.9
--- NOTE | 2018-09-16 11:40 | NUR ---
Marking Devices Assembler offered to pray but patient just wanted to visit briefly.
[2018-09-16 16:34] VITALS: BP 125/71; PULSE 65; TEMP 98
--- NOTE | 2018-09-16 18:39 | NUR ---
Pt doingwell. UP ad brooks today. Denies needs. Resting in chair at side of bed. Will give bedside shift report to nightshift nurse who will resume care.
--- NOTE | 2018-09-16 20:30 | NUR ---
Initial shift assessment done- denies chest pain/SOB/palpitations-- no requests - hopes to go home tomorrow-VSS
[2018-09-16 21:59] VITALS: BP 110/81; PULSE 64; TEMP 8.1
[2018-09-16 22:02] VITALS: BP 110/51; PULSE 64; TEMP 98.1
[2018-09-17 00:32] VITALS: BP 141/78; PULSE 57; TEMP 98
[2018-09-17 03:44] VITALS: BP 112/70; PULSE 54; TEMP 97.7
--- NOTE | 2018-09-17 04:44 | NUR ---
Quiet night- no requests, slept fair, Tele on- SB
[2018-09-17 06:12] LABS: BASO % 0.4 % (0.0-2.0); EOS # 0.2 (0.0-0.7); EOS % 2.6 % (0-4.0); GRAN # 4.3 (1.4-6.5); GRAN % 58.9 % (42.2-75.2); LYMPH # 2.2 (1.2-3.4); LYMPH % 29.7 % (20.0-51.0); MEAN CELL VOLUME 92 fl (80.0-100.0); MEAN CORPUSCULAR HEMOGLOBIN 30 pg (27.0-31.0); MEAN CORPUSCULAR HGB CONC 33 g/dl (33.0-37.0); MEAN PLATELET VOLUME 9.6 fl (7.4-10.4); MONO # 0.6 (0.1-0.6); MONO % 8.1 % (1.7-9.3); PLATELET COUNT 233 K/mm3 (130-400); REDCELL DISTRIBUTION WIDTH-CV 12.4 % (11.5-14.5)
[2018-09-17 06:25] LABS: CALCIUM 8.9 mg/dL (8.4-10.2); CREATININE, serum 0.58 (0.52-1.25); POTASSIUM 3.9 mmol/L (3.4-5.0)
[2018-09-17 08:07] VITALS: BP 100/65; PULSE 76; TEMP 97.6
[2018-09-17] MEDS ORDERED: BETAPACE 80MG80 MG PO (09:43)
--- NOTE | 2018-09-17 11:09 | NUR ---
Discharge instructions reviewed with patient, verbalized understanding. Discharged ambulatory to auto/home with spouse at 1100.
== END 2018-09-17 11:00 | disposition home or self-care (01) | DRG 309 ==
LOC: IMCU 02:45 → ICU 03:27 → MEDICAL 12:46
PROVIDERS: Nurse Practitioner Family; ADMIT Hospitalist
DX: I48.0 Paroxysmal atrial fibrillation (principal); I24.8 Other forms of acute ischemic heart disease; I10 Essential (primary) hypertension; I71.2 Thoracic aortic aneurysm, without rupture; E87.6 Hypokalemia; E78.5 Hyperlipidemia, unspecified; I35.2 Nonrheumatic aortic (valve) stenosis with insufficiency; Z79.01 Long term (current) use of anticoagulants; Z87.891 Personal history of nicotine dependence; Z88.8 Allergy status to other drugs, medicaments and biological substances
CPT/HCPCS: 99222-AI; 99231-AI; 99239; J3475

== ENCOUNTER 2018-09-25 19:55 | Emergency (ER) | payer BC ==
[~2018-09-25] VITALS: Ht 157.5 cm; Wt 86.4 kg
[~2018-09-25 19:55] MED LIST changes: +BETAPACE 80MG80 MG PO; +LIPITOR 40MG TA40 MG PO
[2018-09-25 20:02] VITALS: TEMP 97.9
[2018-09-25 20:21] LABS: BASO % 0.4 % (0.0-2.0); EOS # 0.2 (0.0-0.7); EOS % 2.3 % (0-4.0); GRAN # 4.7 (1.4-6.5); GRAN % 62.2 % (42.2-75.2); HEMOGLOBIN 14.5 g/dl (12.5-16.0); LYMPH # 2.1 (1.2-3.4); LYMPH % 28.5 % (20.0-51.0); MEAN CELL VOLUME 90 fl (80.0-100.0); MEAN CORPUSCULAR HEMOGLOBIN 30 pg (27.0-31.0); MEAN CORPUSCULAR HGB CONC 33 g/dl (33.0-37.0); MEAN PLATELET VOLUME 9.6 fl (7.4-10.4); MONO # 0.5 (0.1-0.6); MONO % 6.3 % (1.7-9.3); PLATELET COUNT 275 K/mm3 (130-400); RED BLOOD COUNT 4.89 M/mm3 (4.10-5.30); REDCELL DISTRIBUTION WIDTH-CV 12.2 % (11.5-14.5)
[2018-09-25 20:29] LABS: INR 1.2 (0.8-3.0); PROTHROMBIN TIME 13.9 SECONDS (9.7-12.8)
[2018-09-25 20:32] LABS: ALANINE AMINOTRANSFERASE 53 U/L (9-52); ALBUMIN 4.4 gm/dL (3.5-5.0); ALKALINE PHOSPHATASE 139 U/L (50-136); ANION GAP 14 mmol/L (7-16); AST,SGOT 62 U/L (15-37); BILIRUBIN,TOTAL 0.5 mg/dL (0.0-1.0); BLOOD UREA NITROGEN 14 mg/dL (7-17); CALCIUM 9.5 mg/dL (8.4-10.2); CARBON DIOXIDE 28 mmol/L (22-30); CHLORIDE 103 mmol/L (98-107); CREATININE, serum 0.74 (0.52-1.25); GLUCOSE 128 mg/dL (74-106); POTASSIUM 3.8 mmol/L (3.4-5.0); SODIUM 145 mmol/L (137-145); TOTAL PROTEIN 7.7 gm/dL (6.4-8.2)
[2018-09-25 20:44] LABS: TROPONIN-I < 0.012 ng/mL (0.000-0.035)
[2018-09-25] MEDS ORDERED: BETAPACE 120MG120 MG PO (21:17)
[2018-09-25 21:41] VITALS: BP 145/96; PULSE 70
== END 2018-09-25 21:41 | disposition home or self-care (01) ==
LOC: COL.ER 19:55
PROVIDERS: Emergency Medicine
DX: I48.91 Unspecified atrial fibrillation (principal); I48.92 Unspecified atrial flutter; I10 Essential (primary) hypertension; Z79.01 Long term (current) use of anticoagulants; Z87.891 Personal history of nicotine dependence; Z98.890 Other specified postprocedural states
CPT/HCPCS: J7030

== ENCOUNTER 2018-10-17 19:00 | Observation (INO) | payer BC ==
[~2018-10-17] VITALS: Ht 157.5 cm; Wt 88.9 kg
[~2018-10-17 19:00] MED LIST changes: +BETAPACE 120MG120 MG PO
[2018-10-17 19:39] LABS: BASO % 0.5 % (0.0-2.0); EOS # 0.3 (0.0-0.7); GRAN # 5.1 (1.4-6.5); GRAN % 61.4 % (42.2-75.2); HEMATOCRIT 43.3 % (37.0-47.0); HEMOGLOBIN 14.4 g/dl (12.5-16.0); LYMPH # 2.2 (1.2-3.4); LYMPH % 26.7 % (20.0-51.0); MEAN CELL VOLUME 91 fl (80.0-100.0); MEAN CORPUSCULAR HEMOGLOBIN 30 pg (27.0-31.0); MEAN CORPUSCULAR HGB CONC 33 g/dl (33.0-37.0); MEAN PLATELET VOLUME 9.8 fl (7.4-10.4); MONO # 0.6 (0.1-0.6); MONO % 6.9 % (1.7-9.3); PLATELET COUNT 242 K/mm3 (130-400); RED BLOOD COUNT 4.78 M/mm3 (4.10-5.30); REDCELL DISTRIBUTION WIDTH-CV 12.4 % (11.5-14.5)
[2018-10-17 19:45] LABS: ALBUMIN 4.3 gm/dL (3.5-5.0); BILIRUBIN,TOTAL 0.6 mg/dL (0.0-1.0); CALCIUM 9.2 mg/dL (8.4-10.2); CREATININE, serum 0.68 (0.52-1.25); POTASSIUM 4.1 mmol/L (3.4-5.0); TOTAL PROTEIN 7.5 gm/dL (6.4-8.2)
[2018-10-17 19:54] LABS: INR 1.3 (0.8-3.0); PROTHROMBIN TIME 14.7 SECONDS (9.7-12.8)
[2018-10-17 19:56] LABS: PARTIAL THROMBOPLASTIN TIME 39.7 SECONDS (26.0-37.0)
[2018-10-17] MEDS ORDERED: PRINIVIL40 MG PO (22:32)
[2018-10-17] MEDS ORDERED: PROTONIX 40MG T40 MG PO (22:33)
--- NOTE | 2018-10-17 22:37 | NUR ---
PT ARRIVED TO MEDICAL UNIT AT THIS TIME. REPORTS NO PAIN. NO CHANGE IN VISION AT THIS TIME. NO DIZZINESS. PT A+OX4. NEURO CHECKS INSIGNIFICANT. NO NEEDS AT THIS TIME. CALL LIGHT IN REACH. ORIENTED TO STAFF AND ROOM
[2018-10-17 22:43] VITALS: BP 112/88; PULSE 76; TEMP 97.9
[2018-10-18 00:10] VITALS: BP 112/88; PULSE 76; TEMP 97.9
[2018-10-18 03:39] VITALS: BP 132/79; PULSE 71; TEMP 97.9
--- NOTE | 2018-10-18 04:52 | NUR ---
PT HAD AN UNEVENTFUL NIGHT. REPROTS NO VISUAL CHANGES SINCE ARRIVAL TO MEDICAL UNIT. NEURO CHECKS Q1H HAVE BEEN INSIGNIFICANT AND UNCHANGED. RAC SALINE LOCK FLUSHES WELL, NO REDNESS, NO SWELLING. TELE ON- NSR SHOWN. ELIQUIS FOR VTE. REPORTS NO PAIN. NO NEEDS AT THIS TIME. CALL LIGHT IN REACH
--- NOTE | 2018-10-18 06:17 | NUR ---
PT RESTED OFF AND ON THROUGHOUT NIGHT. A+OX4. NO PAIN. LUNGS CLEAR X4. BOWEL SOUNDS HEARD THROUGHOUT. HEART RRR. NUERO CHECKS UNCHANGED AND INSIGNIFICANT. NO NEEDS AT THIS TIME. CALL LIGHT IN REACH
[2018-10-18 06:34] LABS: BASO % 0.4 % (0.0-2.0); EOS # 0.2 (0.0-0.7); EOS % 3.3 % (0-4.0); GRAN # 4.4 (1.4-6.5); GRAN % 60.9 % (42.2-75.2); HEMATOCRIT 42.1 % (37.0-47.0); HEMOGLOBIN 13.7 g/dl (12.5-16.0); LYMPH # 1.9 (1.2-3.4); LYMPH % 26.9 % (20.0-51.0); MEAN CELL VOLUME 91 fl (80.0-100.0); MEAN CORPUSCULAR HEMOGLOBIN 30 pg (27.0-31.0); MEAN CORPUSCULAR HGB CONC 33 g/dl (33.0-37.0); MONO # 0.6 (0.1-0.6); MONO % 8.2 % (1.7-9.3); PLATELET COUNT 193 K/mm3 (130-400); RED BLOOD COUNT 4.62 M/mm3 (4.10-5.30); REDCELL DISTRIBUTION WIDTH-CV 12.3 % (11.5-14.5)
[2018-10-18 06:41] LABS: CREATININE, serum 0.58 (0.52-1.25); POTASSIUM 3.8 mmol/L (3.4-5.0)
--- NOTE | 2018-10-18 07:12 | NUR ---
report given to carlitos alexis. pt reports no needs at this time
[2018-10-18 07:36] VITALS: BP 129/90; PULSE 84; TEMP 98.4
--- NOTE | 2018-10-18 08:30 | NUR ---
Patient is awake and alert in room, sitting up in recliner. Denies having any pain. MRI here to take patient for testing.
--- NOTE | 2018-10-18 10:23 | NUR ---
JESUS met with the patient and her mom Lea to discuss a discharge plan. The pt lives in [place] with her partner, Chris. The pt does not use DME and reports independence with ADLs. The pt's PCP is Dr. Fung. The pt receives her medications from [facility] in with no difficulties. The pt has advanced directives in the EMR. The pt plans to return home upon discharge. SW will continue to follow to assist with any discharge recommendations. DPOAs for Chris Brantley Lea Ba
[2018-10-18 12:41] VITALS: BP 128/80; PULSE 75; TEMP 98
--- NOTE | 2018-10-18 15:18 | NUR ---
Patient discharged home. Does not have neurology appointment scheduled. Left message for neurology to call patient directly at home for appoinment. All personal belongings sent with patient. Accompanied out by staff and mother. Transported home via private vehicle.
== END 2018-10-18 15:00 | disposition home or self-care (01) ==
LOC: COL.ER 19:00 → MEDICAL 21:20
PROVIDERS: Family Medicine; Nurse Practitioner; ADMIT Student in an Organized Health Care Education/Training Program
DX: H53.8 Other visual disturbances (principal); I10 Essential (primary) hypertension; I71.2 Thoracic aortic aneurysm, without rupture; I48.0 Paroxysmal atrial fibrillation; I35.0 Nonrheumatic aortic (valve) stenosis; Z87.891 Personal history of nicotine dependence; Z79.01 Long term (current) use of anticoagulants; Z82.49 Family history of ischemic heart disease and other diseases of the circulatory system; Z88.1 Allergy status to other antibiotic agents
CPT/HCPCS: A9585; G0378

== ENCOUNTER → 2018-11-10 | Outpatient (CLI) | payer BC ==
[~2018-11-10] MED LIST changes: +PRINIVIL40 MG PO
== END ==
LOC: COL.CARD 12:44
DX: H53.9 Unspecified visual disturbance (principal); G43.909 Migraine, unspecified, not intractable, without status migrainosus

== ENCOUNTER 2018-11-16 08:11 | Outpatient (CLI) | payer BC ==
[~2018-11-16] VITALS: Ht 157.5 cm; Wt 87.8 kg
[2018-11-16 09:04] VITALS: BP 113/88; PULSE 90; TEMP 97.4
[2018-11-16 10:15] VITALS: BP 98/79; PULSE 86
--- NOTE | 2018-11-16 10:24 | NUR ---
Discharge instructions given to pt.pt verbalizes understanding.Pt escorted out by this nurse.
== END 2018-11-16 10:25 | disposition home or self-care (01) ==
LOC: COL.CAR 08:11
DX: I48.91 Unspecified atrial fibrillation (principal); I48.92 Unspecified atrial flutter

== ENCOUNTER → 2019-02-12 | Outpatient (CLI) | payer BC | LOC: MC.RAD 07:30 | DX: Z12.31 Encounter for screening mammogram for malignant neoplasm of breast (principal); N64.89 Other specified disorders of breast ==

== ENCOUNTER → 2019-02-15 | Outpatient (CLI) | payer BC | LOC: MC.RAD 13:00 | DX: N63.20 Unspecified lump in the left breast, unspecified quadrant (principal) | CPT/HCPCS: G0279 ==

== ENCOUNTER → 2019-08-20 | Outpatient (CLI) | payer BC | LOC: COL.RAD 10:30 | DX: I71.2 Thoracic aortic aneurysm, without rupture (principal); R91.8 Other nonspecific abnormal finding of lung field; I77.1 Stricture of artery; I70.8 Atherosclerosis of other arteries | CPT/HCPCS: Q9967 ==

== ENCOUNTER → 2019-08-20 | Outpatient (CLI) | payer BC | LOC: MC.RAD 06:59 | DX: N63.20 Unspecified lump in the left breast, unspecified quadrant (principal) | CPT/HCPCS: G0279 ==

== ENCOUNTER → 2020-03-25 | Outpatient (CLI) | payer BC | LOC: COL.RAD 03-18 14:30 | DX: I71.2 Thoracic aortic aneurysm, without rupture (principal); I70.8 Atherosclerosis of other arteries | CPT/HCPCS: Q9967 ==

== ENCOUNTER → 2020-09-19 | Outpatient (CLI) | payer BC ==
[~2020-09-19] MED LIST changes: +VITAMIN D31000 I1 PO
== END ==
LOC: COL.RAD 09-17 13:30
DX: I77.1 Stricture of artery (principal); R91.1 Solitary pulmonary nodule; I71.2 Thoracic aortic aneurysm, without rupture
CPT/HCPCS: Q9967

== ENCOUNTER 2020-11-23 18:37 | Emergency (ER) | payer BC ==
[~2020-11-23] VITALS: Ht 157.5 cm; Wt 88.6 kg
[~2020-11-23 18:37] MED LIST changes: -VITAMIN D31000 I1 PO
[2020-11-23 19:16] LABS: BASO # 0.1 (0.0-0.2); BASO % 0.7 % (0.0-2.0); EOS # 0.1 (0.0-0.7); EOS % 1.8 % (0-4.0); GRAN # 4.7 (1.4-6.5); GRAN % 61.3 % (42.2-75.2); HEMATOCRIT 44.8 % (37.0-47.0); HEMOGLOBIN 15.1 g/dl (12.5-16.0); LYMPH # 2.2 (1.2-3.4); LYMPH % 28.4 % (20.0-51.0); MEAN CELL VOLUME 89 fl (80.0-100.0); MEAN CORPUSCULAR HEMOGLOBIN 30 pg (27.0-31.0); MEAN CORPUSCULAR HGB CONC 34 g/dl (33.0-37.0); MEAN PLATELET VOLUME 9.8 fl (7.4-10.4); MONO # 0.6 (0.1-0.6); MONO % 7.4 % (1.7-9.3); PLATELET COUNT 246 K/mm3 (130-400); RED BLOOD COUNT 5.03 M/mm3 (4.10-5.30); REDCELL DISTRIBUTION WIDTH-CV 12.7 % (11.5-14.5)
[2020-11-23 19:26] LABS: ALANINE AMINOTRANSFERASE 30 U/L (4-34); ALBUMIN 4.4 gm/dL (3.5-5.0); ALKALINE PHOSPHATASE 80 U/L (50-136); ANION GAP 11 mmol/L (7-16); AST,SGOT 32 U/L (15-37); BILIRUBIN,TOTAL 0.4 mg/dL (0.0-1.0); BLOOD UREA NITROGEN 17 mg/dL (7-17); CARBON DIOXIDE 27 mmol/L (22-30); CHLORIDE 102 mmol/L (98-107); CREATININE, serum 0.82 (0.52-1.25); GLUCOSE 100 mg/dL (74-106); POTASSIUM 3.2 mmol/L (3.4-5.0); SODIUM 140 mmol/L (137-145); TOTAL PROTEIN 7.5 gm/dL (6.4-8.2)
[2020-11-23 19:49] LABS: MAGNESIUM 1.9 mg/dL (1.6-2.3); PHOSPHOROUS 4.6 mg/dL (2.5-4.5); TROPONIN-I < 0.012 ng/mL (0.000-0.035)
[2020-11-23 21:47] VITALS: BP 110/80; PULSE 78; TEMP 98
[2021-02-10] MEDS ORDERED: VITAMIN D31000 I1 PO (23:12)
[2021-02-10] MEDS ORDERED: HYGROTON 2525 MG/TAB PO (23:13)
[2021-02-12] MEDS ORDERED: ASPIRIN 81M81 MG/TA2 PO (09:48)
[2021-02-12] MEDS ORDERED: TOPROL XL 25MG25 MG PO (09:48)
== END 2020-11-23 21:49 | disposition home or self-care (01) ==
LOC: COL.ER 18:37
PROVIDERS: Student in an Organized Health Care Education/Training Program
DX: R00.2 Palpitations (principal); I48.91 Unspecified atrial fibrillation; I10 Essential (primary) hypertension; E78.5 Hyperlipidemia, unspecified; F17.200 Nicotine dependence, unspecified, uncomplicated; Z79.899 Other long term (current) drug therapy; Z95.818 Presence of other cardiac implants and grafts; Z79.01 Long term (current) use of anticoagulants
CPT/HCPCS: J7030

== ENCOUNTER 2022-07-12 11:04 | Emergency (ER) | payer OTHER ==
[~2022-07-12] VITALS: Ht 157.5 cm; Wt 86.4 kg
[~2022-07-12 11:04] MED LIST changes: +SAXENDA6 MG/ML SQ; +VITAMIN D31000 I1 PO
[2022-07-12 11:11] VITALS: TEMP 97.8
[2022-07-12 11:27] LABS: BASO % 0.4 % (0.0-2.0); EOS # 0.1 K/mm3 (0.0-0.7); EOS % 1.2 % (0.0-4.0); GRAN # 5.6 K/mm3 (1.4-6.5); GRAN % 66.3 % (42.2-75.2); HEMATOCRIT 50.3 % (37.0-47.0); HEMOGLOBIN 17.1 g/dl (12.5-16.0); LYMPH # 2.1 K/mm3 (1.2-3.4); LYMPH % 25.5 % (20.0-51.0); MEAN CELL VOLUME 91 fl (80.0-100.0); MEAN CORPUSCULAR HEMOGLOBIN 31 pg (27-31); MEAN CORPUSCULAR HGB CONC 34 g/dl (33.0-37.0); MEAN PLATELET VOLUME 9.6 fl (7.4-10.4); MONO # 0.5 K/mm3 (0.1-0.6); MONO % 6.4 % (1.7-9.3); PLATELET COUNT 252 K/mm3 (130-400); RED BLOOD COUNT 5.53 M/mm3 (4.10-5.30); REDCELL DISTRIBUTION WIDTH-CV 12.1 % (11.5-14.5)
[2022-07-12 11:47] LABS: ALANINE AMINOTRANSFERASE 26 U/L (0-55); ALBUMIN 4.2 gm/dL (3.4-4.8); ALKALINE PHOSPHATASE 74 U/L (40-150); ANION GAP 11 mmol/L (7-16); AST,SGOT 21 U/L (5-34); BILIRUBIN,TOTAL 0.8 mg/dL (0.2-1.2); BLOOD UREA NITROGEN 13 mg/dL (10-20); CALCIUM 9.7 mg/dL (8.4-10.2); CARBON DIOXIDE 26 mmol/L (23-31); CHLORIDE 104 mmol/L (98-107); CREATININE, serum 0.74 mg/dL (0.57-1.11); GLUCOSE 88 mg/dL (70-99); POTASSIUM 3.8 mmol/L (3.5-4.5); SODIUM 141 mmol/L (136-145); TOTAL PROTEIN 7.4 gm/dL (6.2-8.1)
[2022-07-12 11:59] LABS: TROPONIN-I < 0.010 ng/mL (0.00-0.033)
[2022-07-12 15:00] VITALS: BP 133/86; PULSE 71
== END 2022-07-12 15:00 | disposition home or self-care (01) ==
LOC: COL.ER 11:04
PROVIDERS: Emergency Medicine
DX: R07.89 Other chest pain (principal); F17.210 Nicotine dependence, cigarettes, uncomplicated; Z86.79 Personal history of other diseases of the circulatory system